=== PATIENT | female | born 1995 | race African-American/Black ===

== ENCOUNTER 2018-12-09 13:59 | Emergency (ER) | payer SELFPAY ==
[2018-12-09 14:20] VITALS: BP 110/69
--- NOTE | 2018-12-09 14:29 | UC ---
Complaint Female HPI - HPI Summary HPI Summary: 23 year old female presents with 3 day history of "pea-sized" lesion to the lower, inner part of her right labia. States not painful unless she pushes on it. Denies fever, chills, abdominal pain, nausea, vomiting, dysuria, frequency, urgency, hematuria, vaginal discharge, or dyspareunia. - History Of Current Complaint Chief Complaint: UCSkin Stated Complaint: PERSONAL Time Seen by Provider: 12/09/18 14:19 Hx Obtained From: Patient Hx Last Menstrual Period: 12/01/18 Pain Intensity: 0 - Allergies/Home Medications Allergies/Adverse Reactions: Allergies Allergy/AdvReac Type Severity Reaction Status Date / Time No Known Allergies Allergy Verified 12/09/18 14:14 Home Medications: Home Medications NK [No Home Medications Reported] 12/09/18 [History Confirmed 12/09/18] PMH/Surg Hx/FS Hx/Imm Hx Previously Healthy: Yes - Denies significant PMH Other History Of: Negative For: Anticoagulant Therapy - Surgical History Surgical History: None - Family History Known Family History: Positive: Non-Contributory - Social History Occupation: Employed Full-time Lives: With Family Alcohol Use: Daily Alcohol Amount: 1-2 glasses/ night Substance Use Type: None Smoking Status (MU): Heavy Every Day Tobacco Smoker Length of Time of Smoking/Using Tobacco: 8 years When Did the Patient Quit Smoking/Using Tobacco: 1 month Review of Systems All Other Systems Reviewed And Are Negative: Yes Constitutional: Negative: Fever, Chills Respiratory: Positive: Negative Cardiovascular: Positive: Negative Gastrointestinal: Negative: Abdominal Pain, Vomiting, Diarrhea, Nausea Genitourinary: Positive: Vaginal/Penile Tenderness - See HPI. Negative: Dysuria , Hematuria, Frequency, Urgency, Vaginal/Penile Discharge, Abnormal Bleeding Musculoskeletal: Positive: Negative Neurological: Positive: Negative Is Patient Immunocompromised?: No Physical Exam - Summary Physical Exam Summary: GENERAL APPEARANCE: Well developed, well nourished, alert and cooperative, and appears to be in no acute distress. NECK: Neck supple, non-tender without lymphadenopathy. CARDIAC: Normal S1 and S2. No S3, S4 or murmurs. Rhythm is regular. There is no peripheral edema, cyanosis or pallor. Extremities are warm and well perfused. Capillary refill is less than 2 seconds. Peripheral pulses intact. LUNGS: Clear to auscultation without rales, rhonchi, wheezing or diminished breath sounds. ABDOMEN: Positive bowel sounds. Soft, nondistended, nontender. No guarding or rebound. No masses or hepatosplenomegally. No CVA tenderness. GENITOURINARY: 1 cm tender cystic lesion right inferior inner labia without erythema or discharge consistent with a Bartholin cyst. Chaperoned by Delaney Becerra RN. MUSKULOSKELETAL: ROM intact to all extremities. No joint erythema or tenderness. Normal muscular development. Normal gait. SKIN: Skin normal color, texture and turgor with no lesions or eruptions. Triage Information Reviewed: Yes Vital Signs: Initial Vital Signs Temp 97.1 F 12/09/18 14:15 Pulse 81 12/09/18 14:15 Resp 16 12/09/18 14:15 BP 110/69 12/09/18 14:15 Pulse Ox 100 12/09/18 14:15 Vital Signs Reviewed: Yes Complaint Female Dx - Course Course Of Treatment: 23 year old female presents with 3 day history of "pea-sized" lesion to the lower, inner part of her right labia. States not painful unless she pushes on it. Denies fever, chills, abdominal pain, nausea, vomiting, dysuria, frequency, urgency, hematuria, vaginal discharge, or dyspareunia. Afebrile. VSS. Patient had 1 cm tender cystic lesion right inferior inner labia without erythema or discharge consistent with a Bartholin cyst and otherwise unremarkable exam. Recommending warm, moist compresses or sitz bath 4 times a day. She is to follow up with her PCP or [facility] in 3-5 days if symptoms do not improve. Anticipatory guidance and warning symptoms reviewed with patient. Verbalizes understanding and agrees with POC. - Differential Dx/Diagnosis Differential Diagnosis/HQI/PQRI: Bartholin Cyst, Other - Bartholin abscess Provider Diagnosis: Bartholin gland cyst Discharge - Sign-Out/Discharge Documenting (check all that apply): Patient Departure All imaging exams completed and their final reports reviewed: No Studies - Discharge Plan Condition: Stable Disposition: HOME Patient Education Materials: Bartholin Cyst (ED) Referrals: Maritza Velasco MD [Primary Care Provider] - Mary Luis MD [Medical Doctor] - 3 Days (Call for appointment.) Additional Instructions: Your history and exam are consistent with a Bartholin gland cyst. Use a warm, moist compress or soak in a tub with warm water for 15-20 minutes at least 4 times a day to encourage drainage of the cyst. Follow up with your primary care provider or [facility] in 3-5 days especially if symptoms are not improving. Call for an appointment. Seek immediate medical attention if you develop fever greater than 100.5 F, have increased pain, increased swelling, or any worsening of symptoms. - Billing Disposition and Condition Condition: STABLE Disposition: Home
== END 2018-12-09 14:57 | disposition home or self-care (01) ==
LOC: UCEAST 13:59
DX: N75.0 Cyst of Bartholin's gland (principal); F17.200 Nicotine dependence, unspecified, uncomplicated
CPT/HCPCS: 99212; G0463

== ENCOUNTER 2020-03-01 08:29 | Inpatient (IN) ==
[2020-03-01] MEDS ORDERED: Lactated Ringers 1000 ml BAG 1,000 ML IV ONE (09:42)
[2020-03-01] MEDS ORDERED: Oxytocin in LR 20 UNITS/1,000 ML BAG IVPB SCH ×2 (10:00→23:00)
[2020-03-01 11:13] LABS: ABS Lymphocytes 0.9 10^3/ul (1.0-4.8); ABS Monocytes 0.4 10^3/ul (0-0.8); ABS Neutrophils 4.2 10^3/ul (1.5-7.7); Eosinophil % 0.5 %; Hematocrit 35 % (35-47); Lymphocyte % 15.7 %; Mean Corpuscular HGB Conc 34 g/dL (31-36); Mean Corpuscular Hemoglobin 30 pg (27-31); Mean Corpuscular Volume 88 fL (80-97); Mean Platelet Volume 10.3 fL (7.4-10.4); Platelet Count 101 10^3/uL (150-450); Red Blood Count 3.95 10^6 /uL (3.70-4.87); Red Cell Distribution Width 13 % (10-15); White Blood Count 5.5 10^3/uL (3.5-10.8)
[2020-03-01] MEDS: Lactated Ringers 1000 ml BAG 1,000 ML IV SCH ×3 (11:34→18:26)
[2020-03-01 11:42] LABS: Urine Benzodiazepine Screen None Detected (None Detect); Urine Cannabinoids Screen None Detected (None Detect); Urine Opiates Screen None Detected (None Detect)
[2020-03-01] MEDS ORDERED: OBEPIDURAL 250 ML EPIDURAL ONE (16:41)
[2020-03-01] MEDS ORDERED: Witch Hazel PAD JAR TOPICAL PRN (22:49)
[2020-03-01] MEDS ORDERED: Glycerin ADULT 2.4 gm SUPP PR PRN (22:49)
[2020-03-01] MEDS ORDERED: Dibucaine 1% OINT 28.35 GM TUBE PR PRN (22:49)
[2020-03-01] MEDS ORDERED: Lactated Ringers 1000 ml BAG 1,000 ML IV SCH (23:00)
[2020-03-02 07:36] LABS: ABS Lymphocytes 0.8 10^3/ul (1.0-4.8); ABS Monocytes 0.9 10^3/ul (0-0.8); Eosinophil % 0.2 %; Hematocrit 31 % (35-47); Hemoglobin 10.8 g/dL (12.0-16.0); Lymphocyte % 8.3 %; Mean Corpuscular HGB Conc 35 g/dL (31-36); Mean Corpuscular Hemoglobin 31 pg (27-31); Mean Corpuscular Volume 89 fL (80-97); Mean Platelet Volume 10.3 fL (7.4-10.4); Nucleated Red Blood Cells % 0.1; Platelet Count 100 10^3/uL (150-450); Red Blood Count 3.49 10^6 /uL (3.70-4.87); Red Cell Distribution Width 13 % (10-15); White Blood Count 9.8 10^3/uL (3.5-10.8)
[2020-03-03 11:48] VITALS: BP 132/78
== END 2020-03-03 17:00 | disposition home or self-care (01) | DRG 560 ==
LOC: MCHOBOUT 08:29 → MCHOB 09:50
PROVIDERS: ADMIT Obstetrics & Gynecology; ATTEND Obstetrics & Gynecology

== ENCOUNTER 2024-01-01 02:11 | Inpatient (IN) ==
[2024-01-01] MEDS ORDERED: Lidocaine 1% VIAL 10 MG/ML 30 ML VIAL INJ PRN (06:01)
[2024-01-01] MEDS: Lactated Ringers 1000 ml BAG 1,000 ML IV ONE ×2 (06:15→17:13)
[2024-01-01 06:45] LABS: Hematocrit 32.9 % (35-45); Hemoglobin 10.9 g/dL (11.5-14.3); Mean Corpuscular Hemoglobin 28.3 pg (27-33); Mean Corpuscular Hgb Conc 33.2 g/dL (31-36); Mean Corpuscular Volume 85.2 fL (80-97); Red Blood Count 3.86 10^6/uL (3.63-4.92); Red Cell Distribution Width 13.4 % (12-17); White Blood Count 5.9 10^3/uL (3.8-11.8)
[2024-01-01 06:59] LABS: Urine Benzodiazepine Screen None Detected (None Detect); Urine Cannabinoids Screen None Detected (None Detect); Urine Opiates Screen None Detected (None Detect)
[2024-01-01] MEDS: Lactated Ringers 1000 ml BAG 1,000 ML IV SCH ×2 (07:10→17:14)
[2024-01-01 07:24] LABS: ABS Lymphocytes 0.7 10^3/uL (1.0-4.8); ABS Monocytes 0.4 10^3/uL (0.0-0.9); ABS Neutrophils 4.8 10^3/uL (1.5-7.6); Eosinophil % 0.1 %; Lymphocyte % 12.4 %; Mean Platelet Volume 10.6 fL (7.5-11.2); Platelet Count 95 10^3/uL (150-450)
[2024-01-01] MEDS: OBEPIDURAL (200 ML) 200 ML EPIDURAL ONE (07:47)
[2024-01-01] MEDS ORDERED: Phenylephrine 40 mcg/mL 10mL (400mcg) SYRINGE IV PUSH PRN ×2 (08:25)
[2024-01-01] MEDS ORDERED: Sodium Citrate/Citric Acid LIQ 15 ML UDC PO PRN (08:25)
[2024-01-01 09:24] LABS: Urine Appearance Clear; Urine Bilirubin Negative (Negative); Urine Blood Negative (Negative); Urine Color Colorless; Urine Glucose Negative (Negative); Urine Ketones 2+ (Negative); Urine Nitrite Negative (Negative); Urine Protein Negative (Negative); Urine Specific Gravity 1.008 (1.002-1.030); Urine Urobilinogen Negative (Negative)
[2024-01-01] MEDS: Oxytocin in LR 20,000 MILLI.UNIT/1,000 ML BAG IV SCH (12:35)
[2024-01-01] MEDS ORDERED: Glycerin ADULT 2.4 gm SUPP PR PRN (12:36)
[2024-01-01] MEDS ORDERED: Lactated Ringers 1000 ml BAG 1,000 ML IV SCH (13:00)
[2024-01-01] MEDS: Witch Hazel PAD JAR TOPICAL PRN (14:09)
[2024-01-01] MEDS: Dibucaine 1% OINT 28.35 GM TUBE PR PRN (14:09)
[2024-01-01] MEDS: Buffered Lidocaine 1% SYRIN 1 ml INTRADERM ONE (17:13)
[2024-01-01] MEDS: Lidocaine/Epinephrin 1.5%/200 5 ML AMP INJ ONE (17:13)
[2024-01-01] MEDS: OBEPIDURAL (200 ML) 200 ML EPIDURAL SCH (17:14)
[2024-01-01] MEDS: Oxytocin in LR 20,000 MILLI.UNIT/1,000 ML BAG IV ONE (17:14)
[2024-01-02 09:23] LABS: ABS Monocytes 0.5 10^3/uL (0.0-0.9); Eosinophil % 0.4 %; Hematocrit 30.4 % (35-45); Lymphocyte % 15.8 %; Mean Corpuscular Hgb Conc 32.9 g/dL (31-36); Mean Corpuscular Volume 85.1 fL (80-97); Mean Platelet Volume 9.5 fL (7.5-11.2); Platelet Count 95 10^3/uL (150-450); Red Blood Count 3.57 10^6/uL (3.63-4.92); Red Cell Distribution Width 13.6 % (12-17); White Blood Count 6.6 10^3/uL (3.8-11.8)
[2024-01-02 12:12] VITALS: BP 127/70
== END 2024-01-02 14:25 | disposition home or self-care (01) | DRG 560 ==
LOC: MCHOBOUT 02:11 → MCHOB 06:02
PROVIDERS: ADMIT Obstetrics & Gynecology; ATTEND Obstetrics & Gynecology